=== PATIENT | female | born 1975 | race Caucasian/White ===

== ENCOUNTER 2025-07-12 22:57 | Emergency (ER) | payer OTHER ==
[2025-07-12] MEDS ORDERED: Amoxicillin/Potassium Clav 875 MG TAB ONE (23:38)
[2025-07-12] MEDS ORDERED: Ibuprofen 200 MG TAB ONE (23:38)
== END 2025-07-13 00:20 | disposition home or self-care (01) ==
LOC: BURERS 22:57
DX: S61.552A Open bite of left wrist, initial encounter (principal); W54.0XXA Bitten by dog, initial encounter
CPT/HCPCS: 90715; 99283